=== PATIENT | female | born 1950 | race Caucasian/White ===

== ENCOUNTER 2021-10-04 12:53 | Outpatient (REF) | payer MEDICARE, OTHER, SELFPAY ==
[2021-10-04 13:39] LABS: COVID-19 Test Negative (Negative)
== END 2021-10-04 12:54 | disposition home or self-care (01) ==
LOC: HO.LAB 12:53
PROVIDERS: Visit Provider Internal Medicine
DX: Z20.822 Contact with and (suspected) exposure to COVID-19 (principal)
CPT/HCPCS: 87635; C9803